=== PATIENT | female | born 1990 | race Caucasian/White ===

== ENCOUNTER 2019-08-08 22:01 | Emergency (ER) | payer OTHER ==
[2019-08-08 23:22] LABS: Appearance,Urine Turbid (Clear); Bacteria,Urine Rare /hpf; Bilirubin,Urine Negative (Negative); Blood,Urine Large (Negative); Color,Urine Red; Glucose,Urine (UA) Negative (Negative); Ketones,Urine Negative (Negative); Leukocyte Esterase,Urine Large (Negative); Mucus,Urine Many /hpf; Nitrite,Urine Negative (Negative); Protein,Urine 3+ (Negative); RBC,Urine >182 /hpf (0-5); Squamous Epithelial Cell,Urine 14 /hpf (0-4); Urobilinogen,Urine <2.0 mg/dL (<2.0); WBC,Urine >182 /hpf (0-5)
[2019-08-08] MEDS ORDERED: ONDANSETRON 4 MG ODT STARTER PACK 2 TAB BTL PO STA (23:41)
[2019-08-08] MEDS ORDERED: PHENAZOPYRIDINE 200 MG TAB PO STA (23:42)
[2019-08-08 23:49] LABS: Specific Gravity,Urine 1.024 (1.001-1.035)
[2019-08-08] MEDS ORDERED: NITROFURANTOIN MONOHYD/M-CRYST 100 MG CAP PO STA (23:51)
[2019-08-08] MEDS ORDERED: cefTRIAXone 1,000 MG VIAL (IM USE) IM STA (23:51)
--- NOTE | 2019-08-08 23:54 | ED ---
Abdominal Pain HPI - General Chief Complaint: Abdominal Pain Stated Complaint: Nausea, blood in urine, chills Time Seen by Provider: 08/08/19 23:13 Source: patient Mode of arrival: ambulatory Limitations: no limitations - History of Present Illness Initial Comments: 29-year-old female patient presents to the emergency department today for evaluation of possible urinary tract infection. Patient states that today she is having dysuria and urinary frequency. States this evening she noticed blood in her urine. States she is having some suprapubic discomfort and nausea. Denies any vomiting. Denies any fevers but states she has been chilled. Patient denies history of urinary tract infection. She denies any abnormal vaginal bleeding or discharge. Denies any concern for sexually transmitted infections. States her period was 3 weeks ago. Patient denies any recent rash, shortness breath, chest pain, diarrhea, constipation, back pain, numbness, tingling, dizziness, weakness, headache, visual changes, or any other complaints. - Related Data Previous Rx's Medication Instructions Recorded Nitrofurantoin Monohyd/M-Cryst 100 mg PO Q12HR #14 cap 08/08/19 [Macrobid] Ondansetron [Zofran ODT] 4 mg PO Q8HR PRN #10 tab 08/08/19 Phenazopyridine [Pyridium] 200 mg PO TID #18 tablet 08/08/19 Allergies Allergy/AdvReac Type Severity Reaction Status Date / Time No Known Allergies Allergy Verified 08/08/19 22:15 Review of Systems ROS Statement: Those systems with pertinent positive or pertinent negative responses have been documented in the HPI. ROS Other: All systems not noted in ROS Statement are negative. Past Medical History Past Medical History: No Reported History History of Any Multi-Drug Resistant Organisms: None Reported Past Surgical History: No Surgical Hx Reported Past Psychological History: Depression Smoking Status: Current every day smoker Past Alcohol Use History: None Reported Past Drug Use History: None Reported General Exam Limitations: no limitations General appearance: alert, in no apparent distress, other (This is a well- developed, well-nourished adult female patient in no acute distress. Vital signs upon presentation are temperature 98.1F, pulse 88, respirations 20, blood pressure 109/70, pulse ox 98% on room air.) Respiratory exam: Present: normal lung sounds bilaterally. Absent: respiratory distress, wheezes, rales, rhonchi, stridor Cardiovascular Exam: Present: regular rate, normal rhythm, normal heart sounds. Absent: systolic murmur, diastolic murmur, rubs, gallop, clicks GI/Abdominal exam: Present: soft, normal bowel sounds. Absent: distended, tenderness, guarding, rebound, rigid Back exam: Present: normal inspection. Absent: CVA tenderness (R), CVA tenderness (L) Neurological exam: Present: alert, oriented X3, CN II-XII intact Psychiatric exam: Present: normal affect, normal mood Skin exam: Present: warm, dry, intact, normal color. Absent: rash Course Vital Signs 08/08/19 08/09/19 22:12 00:21 Temperature 98.1 F 98.0 F Pulse Rate 88 85 Respiratory 20 18 Rate Blood Pressure 109/70 115/75 O2 Sat by Pulse 98 98 Oximetry Medical Decision Making - Medical Decision Making 29-year-old female patient presents to the emergency department today for evaluation of dysuria, urinary frequency, and hematuria. Physical examination revealed mild suprapubic tenderness. No CVA tenderness. She is afebrile normal vital signs. Urinalysis did show evidence for urinary tract infection. This is sent for culture. She is given 1 IM dose of Rocephin here. Started on Macrobid, Pyridium, and Zofran. She'll be discharged. The primary care physician for recheck in 1-2 days. Return parameters were discussed in detail. She verbalizes understanding and agrees with this plan. - Lab Data Lab Results 08/08/19 08/08/19 Range/Units 22:49 22:49 Urine Color Red Urine Appearance Turbid H (Clear) Urine pH 6.0 (5.0-8.0) Ur Specific [place] 1.024 (1.001-1.035) Urine Protein 3+ H (Negative) Urine Glucose (UA) Negative (Negative) Urine Ketones Negative (Negative) Urine Blood Large H (Negative) Urine Nitrite Negative (Negative) Urine Bilirubin Negative (Negative) Urine Urobilinogen <2.0 (<2.0) mg/dL Ur Leukocyte Esterase Large H (Negative) Urine RBC >182 H (0-5) /hpf Urine WBC >182 H (0-5) /hpf Urine WBC Clumps Moderate H (None) /hpf Ur Squamous Epith Cells 14 H (0-4) /hpf Urine Bacteria Rare H (None) /hpf Urine Mucus Many H (None) /hpf Urine HCG, Qual Not Detected (Not Detectd) Disposition Clinical Impression: Urinary tract infection Disposition: HOME SELF-CARE Condition: Good Instructions (If sedation given, give patient instructions): Urinary Tract Infection in Women (ED) Additional Instructions: Complete antibiotic prescription in full. Increase fluids. Follow-up with your primary care physician for recheck in 1-2 days. Return to the emergency department immediately for any new, worsening, or concerning symptoms. Prescriptions: Nitrofurantoin Monohyd/M-Cryst [Macrobid] 100 mg PO Q12HR #14 cap Phenazopyridine [Pyridium] 200 mg PO TID #18 tablet Ondansetron [Zofran ODT] 4 mg PO Q8HR PRN #10 tab PRN Reason: Nausea Is patient prescribed a controlled substance at d/c from ED?: No Referrals: Kristie Shaffer MD [Primary Care Provider] - 1-2 days Time of Disposition: 23:52
[2019-08-09 00:22] VITALS: BP 115/75; PULSE 85; RESP 18; TEMP 98
== END 2019-08-09 00:22 | disposition home or self-care (01) ==
LOC: EC 22:01
DX: N39.0 Urinary tract infection, site not specified (principal); F17.200 Nicotine dependence, unspecified, uncomplicated
CPT/HCPCS: 81001; 81025; 87086; 99284; 96372; J0696; S0119

== ENCOUNTER → 2021-06-12 | Outpatient (CLI) | payer OTHER ==
[2021-06-12 17:59] LABS: Basophils # (A) 0.01 X 10*3/uL (0.00-0.10); Basophils % (A) 0.2 %; Eosinophils % (A) 3.4 %; HCT 32.7 % (37.2-46.3); HGB 10.1 g/dL (12.0-15.0); Lymphocytes # (A) 1.48 X 10*3/uL (0.90-5.00); Lymphocytes % (A) 24.9 %; MCH 26.2 pg (27.0-32.0); MCHC 30.9 g/dL (32.0-37.0); MCV 84.7 fL (80.0-97.0); Mean Platelet Volume 11.7 fL (9.5-12.2); Monocytes # (A) 0.49 X 10*3/uL (0.20-1.00); Monocytes % (A) 8.2 %; Neutrophils # (A) 3.72 X 10*3/uL (1.80-7.70); Neutrophils % (A) 62.6 %; Platelet Count 350 X 10*3/uL (140-440); RBC 3.86 X 10*6/uL (4.10-5.20); RDW 15.2 % (11.5-14.5); WBC 5.94 X 10*3/uL (4.50-10.00)
[2021-06-12 19:46] LABS: African American GFR (CKD) 135.8 (60.0-200.0); Albumin 4.6 g/dL (3.8-4.9); Albumin/Globulin Ratio 1.88 (1.60-3.17); Anion Gap 10.8 mmol/L (4.00-12.00); BUN/Creat Ratio 19.85 Ratio (12.00-20.00); Carbon Dioxide 23.6 mmol/L (21.6-31.8); Globulin 2.5 g/dL (1.6-3.3); Non-African American GFR(CKD) 117.2 (60.0-200.0); Potassium 4.5 mmol/L (3.5-5.5); T4, Free (Free Thyroxine) 0.94 ng/dL (0.800-1.800); Total Bilirubin 0.2 mg/dL (0.30-1.20); Total Protein 7.1 g/dL (6.2-8.2)
[2021-06-14 03:00] LABS: % Iron Saturation 6.85 (12.00-45.00)
== END | disposition home or self-care (01) ==
LOC: LABWHC1 12:42
PROVIDERS: ATTEND Internal Medicine
DX: F32.9 Major depressive disorder, single episode, unspecified (principal); R10.84 Generalized abdominal pain; R53.83 Other fatigue
CPT/HCPCS: 36415; 80053; 83036; 83540; 83550; 84439; 84443; 84481; 85025

== ENCOUNTER → 2022-01-06 | Outpatient (CLI) | payer OTHER ==
--- NOTE | 2022-01-06 16:58 | XR ---
EXAMINATION TYPE: XR lumbar spine 2 or 3V DATE OF EXAM: 01/06/2022 COMPARISON: NONE HISTORY: Pain TECHNIQUE: 3 view FINDINGS: Vertebral abnormal alignment. Posterior elements are intact. No compression fracture. Sacro iliac joints are intact. There is slight narrowing of L5-S1 disc spaces. IMPRESSION: Negative lumbar spine exam. No fracture seen.
== END | disposition home or self-care (01) ==
LOC: RADXRMAIN 16:28
PROVIDERS: ATTEND Internal Medicine
DX: M54.50 Low back pain, unspecified (principal)
CPT/HCPCS: 72100